=== PATIENT | female | born 1985 | race Caucasian/White ===

== ENCOUNTER 2021-03-21 11:57 | Inpatient (IN) | payer SELFPAY ==
[~2021-03-21] VITALS: Ht 152.4 cm; Wt 45.5 kg
[2021-03-21 13:33] LABS: BASO # 0.1 (0.0-0.2); BASO % 1.6 % (0.0-2.0); EOS % 0.5 % (0-4.0); GRAN # 4.2 (1.4-6.5); GRAN % 65.3 % (42.2-75.2); HEMATOCRIT 37.1 % (37.0-47.0); HEMOGLOBIN 12.6 g/dl (12.5-16.0); LYMPH # 1.7 (1.2-3.4); LYMPH % 26.5 % (20.0-51.0); MEAN CELL VOLUME 105 fl (80.0-100.0); MEAN CORPUSCULAR HEMOGLOBIN 36 pg (27.0-31.0); MEAN CORPUSCULAR HGB CONC 34 g/dl (33.0-37.0); MEAN PLATELET VOLUME 9.8 fl (7.4-10.4); MONO # 0.4 (0.1-0.6); MONO % 5.8 % (1.7-9.3); PLATELET COUNT 197 K/mm3 (130-400); RED BLOOD COUNT 3.52 M/mm3 (4.10-5.30); REDCELL DISTRIBUTION WIDTH-CV 13.7 % (11.5-14.5)
[2021-03-21 13:35] LABS: TRICYCLIC ANTIDEPRESS URINE NEGATIVE
[2021-03-21 13:45] LABS: ALBUMIN 2.9 gm/dL (3.5-5.0); BILIRUBIN,TOTAL 1.4 mg/dL (0.0-1.0); CALCIUM 7.5 mg/dL (8.4-10.2); CREATININE, serum 0.35 (0.52-1.25); TOTAL PROTEIN 5.7 gm/dL (6.4-8.2)
[2021-03-21 13:53] LABS: POTASSIUM 2.9 mmol/L (3.4-5.0)
[2021-03-22 02:43] LABS: CALCIUM 6.7 mg/dL (8.4-10.2); CREATININE, serum 0.33 (0.52-1.25); POTASSIUM 4.1 mmol/L (3.4-5.0)
[2021-03-22] MEDS ORDERED: PROTONIX 40MG T40 MG PO (05:13)
[2021-03-22] MEDS ORDERED: ZOFRAN ODT4 MG PO (05:13)
[2021-03-22 21:08] VITALS: BP 111/74; PULSE 81; TEMP 99
--- NOTE | 2021-03-22 22:44 | NUR ---
PATIENT ARRIVED TO FLOOR FROM ED. PATIENT RESTING IN BED, ALERT AND ORIENTED X4. PATIENT PRESENT FOR ALCOHOL W/D. PATIENT IS ANXIOUS WITH MODERATE HANDS TREMORS. CIWA Q2 HOURS COVEREDS PER SCALE. AMBULATES WITH STAND BY ASSIST. ORIENTATED TO ROOM, CALL LIGHT CLOSE BY, BED LOW AND LOCKED. WILL CONTINUE TO MONITOR.
[2021-03-22 23:54] VITALS: BP 121/83; PULSE 102; TEMP 99.2
[2021-03-23] VITALS (9 sets, daily range): BP systolic 99–131; BP diastolic 64–87; PULSE 40–101; TEMP 98.7–99.3
[2021-03-23 07:14] LABS: BASO # 0.1 (0.0-0.2); BASO % 1.1 % (0.0-2.0); EOS # 0.1 (0.0-0.7); EOS % 1.1 % (0-4.0); GRAN # 3.5 (1.4-6.5); GRAN % 63.7 % (42.2-75.2); HEMOGLOBIN 11.7 g/dl (12.5-16.0); LYMPH # 1.5 (1.2-3.4); LYMPH % 27.5 % (20.0-51.0); MEAN CELL VOLUME 109 fl (80.0-100.0); MEAN CORPUSCULAR HEMOGLOBIN 36 pg (27.0-31.0); MEAN CORPUSCULAR HGB CONC 33 g/dl (33.0-37.0); MEAN PLATELET VOLUME 11.3 fl (7.4-10.4); MONO # 0.3 (0.1-0.6); MONO % 6.2 % (1.7-9.3); PLATELET COUNT 120 K/mm3 (130-400); RED BLOOD COUNT 3.21 M/mm3 (4.10-5.30); REDCELL DISTRIBUTION WIDTH-CV 13.3 % (11.5-14.5)
[2021-03-23 07:15] LABS: HEMATOCRIT 35.1 % (37.0-47.0)
[2021-03-23 07:25] LABS: ALBUMIN 2.7 gm/dL (3.5-5.0); BILIRUBIN,TOTAL 3.8 mg/dL (0.0-1.0); CALCIUM 7.8 mg/dL (8.4-10.2); CREATININE, serum 0.41 (0.52-1.25); MAGNESIUM 1.6 mg/dL (1.6-2.3); POTASSIUM 3.4 mmol/L (3.4-5.0); TOTAL PROTEIN 5.6 gm/dL (6.4-8.2)
[2021-03-23 07:26] LABS: INR 1.1 (0.8-3.0)
--- NOTE | 2021-03-23 16:20 | NUR ---
Edge Glue Machine Tender met with the patient to complete intake. Also present the patient's boyfriend, Marivel Kamara. The patient lives in [place] with Marivel. The patient denies DME use and receives assistance from Marivel with ADLs as needed. The patient does not have a PCP but was interested in setting up with [facility] in [place]. The patient obtains medications from [facility] in . The patient does not have advanced directives. The patient is not and has no children. The patient reports her parents are around but she is estranged from them and refused to give their names. SW discussed the importance of advanced directives with the patient. The patient was interested in DPOA-HC form. Form provided. The patient states she does not want her parents making any decisions for her. She states she will likely designate her boyfriend. SW addressed patient's alcohol use. The patient was interested in substance use information. The patient states she will not likely go to detox since she is here. PAYAL discussed the process if she was wanting to go to alcohol rehab and that [facility] needed to be contacted by the patient to set up an evaluation. She understood. SW provided the patient with substance use resources. The patient plans to return home with her boyfriend at discharge. *Discharge disposition: home with boyfriend*
--- NOTE | 2021-03-23 19:32 | NUR ---
Received report from Tobias. Patient awake in bed. Slight tremors noted on her hands. She denies pain.
[2021-03-24] VITALS (10 sets, daily range): BP systolic 106–138; BP diastolic 68–83; PULSE 55–120; TEMP 96.4–99.4
--- NOTE | 2021-03-24 00:08 | NUR ---
Informed Naheed TOWER SUPERVISOR regarding C-Diff result. Will start patient on oral antibiotics.
--- NOTE | 2021-03-24 01:37 | NUR ---
Received report from LAURA King. Patient resting in bed at this time. No acute distress noted. Call light within reach.
[2021-03-24 07:05] LABS: HEMOGLOBIN 12.3 g/dl (12.5-16.0); MEAN CELL VOLUME 108 fl (80.0-100.0); MEAN CORPUSCULAR HEMOGLOBIN 36 pg (27.0-31.0); MEAN CORPUSCULAR HGB CONC 33 g/dl (33.0-37.0); MEAN PLATELET VOLUME 11.4 fl (7.4-10.4); PLATELET COUNT 126 K/mm3 (130-400); RED BLOOD COUNT 3.41 M/mm3 (4.10-5.30); REDCELL DISTRIBUTION WIDTH-CV 13.1 % (11.5-14.5)
[2021-03-24 07:09] LABS: HEMATOCRIT 36.8 % (37.0-47.0)
[2021-03-24 07:10] LABS: CALCIUM 8.1 mg/dL (8.4-10.2); CREATININE, serum 0.43 (0.52-1.25); MAGNESIUM 1.7 mg/dL (1.6-2.3); POTASSIUM 3.2 mmol/L (3.4-5.0)
--- NOTE | 2021-03-24 09:48 | NUR ---
Shift assessment complete. Pt sitting up in bed finishing breakfast. Reports decreased appetite but improving and mild nausea. Denies pain. Reports improvement in frequency and consistency of stools since starting vancomycin. A&Ox4. Heart RRR. Lungs CTA. Denies needs. Continuing to monitor.
[2021-03-24 12:11] LABS: CLOSTRIDIUM DIFF A/B NEG; CLOSTRIDIUM DIFF A/B INTERP NonToxigenic C.diff
--- NOTE | 2021-03-24 12:42 | NUR ---
Pt. with Cdiff testing reporting non-toxigenic Cdiff --- patient having active diarrhea ---needs to remain in Contact Precautions until at least 48-72 hrs after formed stools begin.
--- NOTE | 2021-03-24 20:00 | NUR ---
report received, assumed care for overnight associate. Assessment complete. A&Ox3. Denies pain/nausea/shortness of breath. Reports several episodes of small liquid stools. VS stable. States motrin and ativan helped with headache and anxiety. States she has been sleeping well last hour. plan of care discussed for this shift to include HS meds/pain meds/detox protocol. Verbalizes understanding/denies questions/concerns. Call light in reach. Will monitor.
--- NOTE | 2021-03-24 22:45 | NUR ---
Called nurses station with c/o anxiety. Very tearful and states she is just homesick and no one came to visit her this afternoon like they stated they would. Requesting ativan. PRN dose given per dr order. Will continue to monitor.
[2021-03-25] VITALS (10 sets, daily range): BP systolic 104–137; BP diastolic 64–91; PULSE 55–109; TEMP 98.2–99.1
--- NOTE | 2021-03-25 02:53 | NUR ---
Notified by Wood Casket Maker of bradycardia into the 40s. VS WNL-116/64, P 58, T 98.6 and O2 Sat 99% on RA. Denies lightheadedness/dizziness/nausea/shortness of breath. States "I was sleeping very hard." Will continue to monitor.
[2021-03-25 07:07] LABS: HEMOGLOBIN 12.2 g/dl (12.5-16.0); MEAN CELL VOLUME 108 fl (80.0-100.0); MEAN CORPUSCULAR HEMOGLOBIN 36 pg (27.0-31.0); MEAN CORPUSCULAR HGB CONC 34 g/dl (33.0-37.0); MEAN PLATELET VOLUME 11.6 fl (7.4-10.4); PLATELET COUNT 119 K/mm3 (130-400); RED BLOOD COUNT 3.37 M/mm3 (4.10-5.30); REDCELL DISTRIBUTION WIDTH-CV 13.2 % (11.5-14.5)
[2021-03-25 07:11] LABS: HEMATOCRIT 36.3 % (37.0-47.0)
[2021-03-25 07:15] LABS: CALCIUM 8.4 mg/dL (8.4-10.2); CREATININE, serum 0.34 (0.52-1.25); MAGNESIUM 1.8 mg/dL (1.6-2.3); POTASSIUM 3.5 mmol/L (3.4-5.0)
--- NOTE | 2021-03-25 09:40 | NUR ---
Pt called stating she was feeling very anxious. Entered room to find pt sitting up in bed in tears. Vitals stable but detox score of 5 at this time d/t anxiety, diaphoresis, and decreased appetite. Ativan given per orders. Reports feeling nauseous every time she tries to eat, reminded she can have zofran or phenergan if needed. Says she might try nausea meds later. Does report a loose stool this morning but says she feels the bulk of her stool is improving. Denies other needs. Call light in reach.
--- NOTE | 2021-03-25 18:44 | NUR ---
Max CIWA score of 6 today w/most recent score of 4. Reports increased appetite and was able to tolerate eating most of lunch and dinner w/o nausea. Stools continue to be loose but no longer watery. Report given to overnight cashier LAURA Valentino.
--- NOTE | 2021-03-25 19:40 | NUR ---
Report received, assumed care for maintenance supervisor 2nd shift. Friend at bedside-states patient is resting for first time today. No s/s of distress noted. Will do assessment with next Q2H check.
--- NOTE | 2021-03-25 20:45 | NUR ---
Very anxious at this time. Sitting in bed crying/rocking back and fourth. States she has had a terrible day with her boyfriend. VS are stable-ativan 1mg given per dr order based on CIWA score of 6.
[2021-03-26] VITALS (7 sets, daily range): BP systolic 96–141; BP diastolic 70–88; PULSE 66–89; TEMP 98.4–98.9
--- NOTE | 2021-03-26 00:55 | NUR ---
Ativan given per dr order for CIWA score of 6
--- NOTE | 2021-03-26 06:36 | NUR ---
Did not rest well this shift. Fell asleep around 0500 this AM. Stated she just couldnt sleep and felt wide awake. States stool is more formed than yesterday. Denied nausea/shortness of breath/pain. Tolerated diet. Had an episode of severe anxiety x2. Last detox protocol scores 1-2.
[2021-03-26 07:51] LABS: BASO # 0.1 (0.0-0.2); BASO % 1.6 % (0.0-2.0); EOS # 0.1 (0.0-0.7); EOS % 2.7 % (0-4.0); GRAN # 2.2 (1.4-6.5); GRAN % 48.9 % (42.2-75.2); HEMATOCRIT 37.1 % (37.0-47.0); HEMOGLOBIN 12.1 g/dl (12.5-16.0); LYMPH # 1.6 (1.2-3.4); LYMPH % 36.7 % (20.0-51.0); MEAN CELL VOLUME 112 fl (80.0-100.0); MEAN CORPUSCULAR HEMOGLOBIN 37 pg (27.0-31.0); MEAN CORPUSCULAR HGB CONC 33 g/dl (33.0-37.0); MEAN PLATELET VOLUME 11.3 fl (7.4-10.4); MONO # 0.4 (0.1-0.6); MONO % 9.6 % (1.7-9.3); PLATELET COUNT 134 K/mm3 (130-400); REDCELL DISTRIBUTION WIDTH-CV 13.6 % (11.5-14.5)
[2021-03-26 08:04] LABS: ALBUMIN 2.9 gm/dL (3.5-5.0); BILIRUBIN,TOTAL 2.1 mg/dL (0.0-1.0); CALCIUM 8.4 mg/dL (8.4-10.2); CREATININE, serum 0.47 (0.52-1.25); POTASSIUM 3.9 mmol/L (3.4-5.0); TOTAL PROTEIN 5.8 gm/dL (6.4-8.2)
[2021-03-26] MEDS ORDERED: VANCOCIN H125 MG/CAP PO (12:06)
[2021-03-26] MEDS ORDERED: FOLIC ACID 11 MG/TA1 PO (12:06)
[2021-03-26] MEDS ORDERED: DUO-KAPS1 CAP PO (12:07)
[2021-03-26] MEDS ORDERED: THIAMINE 1100 MG/TAB PO (12:07)
--- NOTE | 2021-03-26 13:00 | NUR ---
Scheduled medications given. Shift assessment preformed. Patient does not C/O any pain, discomfort, or SOA. Patient not requiring any Ativan for detox. Contact precautions for CDIFF. Patient deemed fit for discharge my Dr. Brambila. IV DC'd catheter intact no signs of discharge. Discharge instructions/education given. Patient denies any further questions or concerns. Patient ambulated from the building escorted by [facility] Staff.
== END 2021-03-26 13:00 | disposition home or self-care (01) | DRG 897 ==
LOC: COL.ER 11:57 → MEDICAL 03-22 05:50
PROVIDERS: Internal Medicine; Nurse Practitioner; Nurse Practitioner Primary Care; Physician Assistant; ADMIT Student in an Organized Health Care Education/Training Program
DX: F10.139 Alcohol abuse with withdrawal, unspecified (principal); A04.72 Enterocolitis due to Clostridium difficile, not specified as recurrent; I82.612 Acute embolism and thrombosis of superficial veins of left upper extremity; E87.6 Hypokalemia; R94.5 Abnormal results of liver function studies; F17.210 Nicotine dependence, cigarettes, uncomplicated; Z20.822 Contact with and (suspected) exposure to COVID-19
CPT/HCPCS: 99223-AI; 99232-AI; 99238; C9113; J1650; J2060; J2405; J3411; J3475; J3480; J7030